=== PATIENT | female | born 1950 | race Caucasian/White ===

== ENCOUNTER 2018-09-22 10:47 | Day surgery (SDC) | payer OTHER ==
[2018-09-22] MEDS ORDERED: PROPOFOL 40 ML (13:25)
[2018-09-22] MEDS ORDERED: LIDOCAINE 2% (SDV) 5 ML INJ (13:25)
== END 2018-09-22 17:45 | disposition home or self-care (01) ==
LOC: GIL 10:47
DX: D12.2 Benign neoplasm of ascending colon (principal); K62.1 Rectal polyp; K64.8 Other hemorrhoids; K57.30 Diverticulosis of large intestine without perforation or abscess without bleeding
CPT/HCPCS: 45380; 88305